=== PATIENT | male | born 1995 | race Two or more races ===

== ENCOUNTER 2025-02-11 11:17 | Inpatient (IN) | payer OTHER ==
[~2025-02-11] VITALS: Ht 185.4 cm; Wt 115.0 kg
[2025-02-11 12:13] LABS: CALCIUM, TOTAL 9.5 mg/dL (8.8-10.5); CARBON DIOXIDE 28 mmol/L (22-29); CREATININE 0.83 mg/dL (0.60-1.30); GLOMERULAR FILTR. RATE CALC > 60 mL/min (>60); GLUCOSE,RANDOM 106 mg/dL (70-110); POTASSIUM 3.4 mmol/L (3.5-5.1); SODIUM SERUM 138 mmol/L (136-145); UREA NITROGEN, BLOOD 11 mg/dL (7-18)
[2025-02-11 12:21] LABS: ANION GAP 9 mmol/L (8-16); BASOPHILS % (AUTO) 0.2 % (0.0-2.0); CHLORIDE 101 mmol/L (98-107); EOSINOPHILS % (AUTO) 0 % (1.0-6.0); HEMATOCRIT 49.2 % (41-53); HEMOGLOBIN 16.4 g/dL (13.5-17.5); LYMPHOCYTES # (AUTO) 1.2 K/uL (1.0-4.8); LYMPHOCYTES % (AUTO) 13.3 % (22.0-44.0); MEAN CORPUSCULAR HEMOGLOBIN 29.9 pg (26.0-34.0); MEAN CORPUSCULAR HGB CONC 33.3 G/dL (31.0-37.0); MEAN CORPUSCULAR VOLUME 90 fL (80-100); MONOCYTES # (AUTO) 0.4 K/uL (0.1-1.0); MONOCYTES % (AUTO) 4.3 % (2.0-9.0); NEUTROPHILS # (AUTO) 7.4 K/uL (1.8-7.7); NEUTROPHILS % (AUTO) 82.2 % (40.0-70.0); PLATELET COUNT (AUTO) 294 K/uL (150-450); RED BLOOD CELL COUNT(AUTO) 5.47 MIL/uL (4.50-5.90); RED CELL DISTRIBUTION WIDTH 13.6 % (11.5-14.5)
[2025-02-11 12:22] LABS: ALCOHOL, URINE DRUG SCREEN NEGATIVE (NEGATIVE); AMPHET/METH SCREEN,URINE NEGATIVE (NEGATIVE); BARBITURATE SCREEN, URINE NEGATIVE (NEGATIVE); BENZODIAZEPINES SCREEN,URINE NEGATIVE (NEGATIVE); CANNABINOID SCREEN,URINE NEGATIVE (NEGATIVE); COCAINE SCREEN,URINE NEGATIVE (NEGATIVE); METHADONE SCREEN, URINE NEGATIVE (NEGATIVE); OPIATE SCREEN,URINE NEGATIVE (NEGATIVE); PHENCYCLIDINE SCREEN,URINE NEGATIVE (NEGATIVE)
[2025-02-11] MEDS ORDERED: BISACODYL 10 MG RECTAL RECTAL SUPPOSITORY PR PRN (15:45)
[2025-02-11] MEDS ORDERED: ONDANSETRON HCL 4 MG/2 ML VIAL IVP PRN (15:45)
[2025-02-11] MEDS ORDERED: ACETAMINOPHEN 325 MG TABLET PO PRN (15:45)
[2025-02-11] MEDS ORDERED: ZOLPIDEM TARTRATE 5 MG TABLET PO PRN (15:45)
[2025-02-11] MEDS ORDERED: MAGNESIUM HYDROXIDE SUSPENSION 30 ML UDCUP PO PRN (15:45)
[2025-02-11] MEDS: HEPARIN SODIUM,PORCINE 5,000 UNITS/ML VIAL SQ SCH (16:00)
[2025-02-11 18:33] VITALS: BP 115/74; PULSE 79; RESP 20; TEMP 98.2; O2SAT 96
[2025-02-11 19:00] VITALS: BP 126/85; PULSE 82; RESP 18; TEMP 98.6
[2025-02-11 20:10] VITALS: BP 117/76; PULSE 75; RESP 18; TEMP 98.2; O2SAT 96
[2025-02-11] MEDS: DOCUSATE SODIUM 100 MG CAPSULE PO SCH (20:11)
[2025-02-11] MEDS ORDERED: POTASSIUM CHL 10 MEQ/WATER 50 ML IV PRN (20:30)
[2025-02-11] MEDS: POTASSIUM CHLORIDE 20 MEQ ER TABLET PO PRN (20:35)
[2025-02-12 05:00] VITALS: BP 111/71; PULSE 76; RESP 18; TEMP 97.5; O2SAT 98
[2025-02-12 08:48] VITALS: BP 113/81; PULSE 82; RESP 19; TEMP 98.2; O2SAT 97
[2025-02-12] MEDS: PANTOPRAZOLE SODIUM 40 MG DR TABLET PO SCH (08:52)
[2025-02-12] MEDS ORDERED: BISA10SU11 PR (11:25)
[2025-02-12] MEDS ORDERED: MAGN-169 PO (11:26)
== END 2025-02-12 13:10 | DRG 392 ==
LOC: EMS 11:17 → EDH 14:16 → 6S 18:19
PROVIDERS: ADMIT Internal Medicine; ATTEND Internal Medicine
DX: R10.84 Generalized abdominal pain (principal); E87.6 Hypokalemia
CPT/HCPCS: 74176; 80048; 80307; 84132; 85025; 99285; J1644